=== PATIENT | male | born 1980 | race African-American/Black ===

== ENCOUNTER 2019-02-14 12:09 | Emergency (ER) | payer SELFPAY ==
[~2019-02-14] VITALS: Ht 162.6 cm; Wt 81.6 kg
[2019-02-14 12:17] VITALS: BP 136/88
== END 2019-02-14 14:51 | disposition home or self-care (01) ==
LOC: EDBD 12:09 → ER 12:09
DX: S29.012A Strain of muscle and tendon of back wall of thorax, initial encounter (principal); F17.210 Nicotine dependence, cigarettes, uncomplicated; V43.52XA Car driver injured in collision with other type car in traffic accident, initial encounter; Y93.89 Activity, other specified; Y99.8 Other external cause status; Y92.410 Unspecified street and highway as the place of occurrence of the external cause
CPT/HCPCS: 72070